=== PATIENT | male | born 1955 | race Caucasian/White ===

== ENCOUNTER 2017-02-28 06:02 | Inpatient (IN) | payer OTHER ==
[~2017-02-28] VITALS: Ht 185.4 cm; Wt 85.9 kg
[~2017-02-28 06:02] MED LIST: ALBU0.63 NEB; ASPI-496 PO; CLOP75TA52 PO; FLUT9.9S NAS; FOLI-17 PO; FURO-92 PO; FURO-93 PO; FURO40TA6 PO; GABA300C10 PO; HYDR-3237 PO; LACT20SO13 PO; LORA-445 PO; LORA-446 PO; METO-99 PO; METO25TA35 PO; METR500T PO; NICO-486 TD; NICO-487 TD; OXYC5CAP2 PO; OXYC5TAB3 PO; OXYGEN INH; PANT40TA3 PO; PANT40TA5 PO; POTA20TA6 PO; POTA20TA91 PO; PRED5TAB PO; SPIR50TA2 PO; TAMS0.4C2 PO; THIA100T6 PO; metoprolol PO
[2017-02-28] MEDS ORDERED: SODIUM CHLORIDE FLUSH 10ML SYR IVF ONE (07:00)
[2017-02-28] MEDS ORDERED: ONDANSETRON 2MG/ML, 2ML IVPush ONE (07:00)
[2017-02-28 07:23] LABS: HEMATOCRIT 29.1 % (39.2-51.8); HEMOGLOBIN 9.6 g/dL (13.7-18.0); WHITE BLOOD COUNT 7.3 x10^3/uL (3.4-10)
[2017-02-28] MEDS ORDERED: morphine SULFATE 10 MG/ML, 1ML ONE ×3 (07:24→14:17)
[2017-02-28] MEDS ORDERED: ONDANSETRON 2MG/ML, 2ML ONE (07:24)
[2017-02-28] MEDS: MORPHINE SULFATE 4 MG/ML, 1ML IVPush PRN ×2 (07:32→10:46)
[2017-02-28 07:35] LABS: ASPARTATE AMINO TRANSFERASE 30 U/L (15-37); BLOOD UREA NITROGEN 6 mg/dL (7-18)
[2017-02-28 07:41] LABS: IS PT STATUS REG ER OR PRE ER? YES
[2017-02-28] MEDS ORDERED: CLINDAMYCIN PMX 600MG/50ML 50 ML IV ONE (10:30)
[2017-02-28 12:00] VITALS: BP 200/104
[2017-02-28] MEDS ORDERED: LABETALOL 5MG/ML, 20ML IVPush PRN (12:00)
[2017-02-28] MEDS ORDERED: ONDANSETRON 2MG/ML, 2ML IVPush PRN (12:00)
[2017-02-28] MEDS ORDERED: POLYETHYLENE GLYCOL 17 GM PACKET PO PRN (12:00)
[2017-02-28] MEDS ORDERED: ALBUTEROL SULFATE 2.5 MG/3 ML NEB PRN (12:30)
[2017-02-28] MEDS ORDERED: ALBUMIN HUMAN 25% 100 ML IV ONE (12:30)
[2017-02-28] MEDS: TAMSULOSIN 0.4 MG CAP.ER.24H PO SCH (12:48)
[2017-02-28] MEDS: METOPROLOL TARTRATE 100 MG TABLET PO SCH (12:48)
[2017-02-28] MEDS: ENOXAPARIN 40 MG/0.4 ML SQ SCH (12:49)
[2017-02-28] MEDS: GABAPENTIN 300 MG CAPSULE PO SCH (12:49)
[2017-02-28 13:30] VITALS: BP 160/99
[2017-02-28] MEDS ORDERED: FOLI-17 PO (13:51)
[2017-02-28] MEDS ORDERED: PANT40TA3 PO (13:56)
[2017-02-28] MEDS ORDERED: THIA100T10 PO (13:56)
[2017-02-28] MEDS ORDERED: FLU VACC QS2017-18 (36MOS+) UP/PF 0.5 ML IM-VACC ONE (14:00)
[2017-02-28] MEDS: morphine SULFATE 10 MG/ML, 1ML IVPush PRN (14:19)
[2017-02-28] MEDS: AMPICILLIN/SULBACTAM 3 GM in SODIUM CHLORIDE 0.9% 100 ML IV SCH ×2 (14:55→21:19)
[2017-02-28] MEDS: FUROSEMIDE 20 MG/2 ML IV SCH (16:55)
[2017-02-28] MEDS ORDERED: ALBUTEROL/IPRATROPIUM 2.5MG/0.5MG, 3 ML IPPB PRN (17:00)
[2017-02-28 19:34] VITALS: BP 117/74
[2017-02-28] MEDS ORDERED: DOXYCYCLINE 100MG TABLET PO ONE (21:00)
[2017-02-28] MEDS ORDERED: ALBUTEROL/IPRATROPIUM 2.5MG/0.5MG, 3 ML IPPB SCH (21:00)
[2017-02-28] MEDS: OXYcodone IR 5MG TABLET PO SCH (21:18)
[2017-03-01 01:48] VITALS: BP 160/82
[2017-03-01] MEDS: AMPICILLIN/SULBACTAM 3 GM in SODIUM CHLORIDE 0.9% 100 ML IV SCH ×4 (02:31→21:32)
[2017-03-01] MEDS: morphine SULFATE 10 MG/ML, 1ML IVPush PRN ×5 (02:58→20:34)
[2017-03-01 04:57] LABS: HEMATOCRIT 24.4 % (39.2-51.8); HEMOGLOBIN 7.8 g/dL (13.7-18.0); WHITE BLOOD COUNT 5.5 x10^3/uL (3.4-10)
[2017-03-01 05:06] LABS: ASPARTATE AMINO TRANSFERASE 28 U/L (15-37); BLOOD UREA NITROGEN 9 mg/dL (7-18)
[2017-03-01] MEDS ORDERED: ALBUTEROL/IPRATROPIUM 2.5MG/0.5MG, 3 ML NPPB PRN (07:00)
[2017-03-01 07:13] VITALS: BP 161/98
[2017-03-01] MEDS: ALBUTEROL/IPRATROPIUM 2.5MG/0.5MG, 3 ML NPPB SCH ×3 (07:44→20:20)
[2017-03-01] MEDS: OXYcodone IR 5MG TABLET PO SCH ×3 (08:17→21:32)
[2017-03-01] MEDS: FUROSEMIDE 20 MG/2 ML IV SCH ×2 (08:17→16:18)
[2017-03-01] MEDS: TAMSULOSIN 0.4 MG CAP.ER.24H PO SCH (08:17)
[2017-03-01] MEDS: GABAPENTIN 300 MG CAPSULE PO SCH (08:17)
[2017-03-01] MEDS: SENNA/DOCUSATE TABLET PO SCH (08:27)
[2017-03-01] MEDS: METOPROLOL TARTRATE 100 MG TABLET PO SCH (08:29)
[2017-03-01 12:55] VITALS: BP 102/60
[2017-03-01] MEDS: ENOXAPARIN 40 MG/0.4 ML SQ SCH (13:16)
[2017-03-01 14:07] VITALS: BP 144/86
[2017-03-01 19:38] VITALS: BP 158/83
[2017-03-01 20:40] LABS: ASPARTATE AMINO TRANSFERASE 34 U/L (15-37); BLOOD UREA NITROGEN 9 mg/dL (7-18)
[2017-03-01 20:47] LABS: HEMATOCRIT 28.5 % (39.2-51.8); HEMOGLOBIN 9.1 g/dL (13.7-18.0); WHITE BLOOD COUNT 5.8 x10^3/uL (3.4-10)
[2017-03-01] MEDS: ALBUMIN HUMAN 25% 100 ML IV SCH (20:48)
[2017-03-02 01:15] VITALS: BP 175/88
[2017-03-02] MEDS: AMPICILLIN/SULBACTAM 3 GM in SODIUM CHLORIDE 0.9% 100 ML IV SCH (05:24)
[2017-03-02] MEDS: morphine SULFATE 10 MG/ML, 1ML IVPush PRN ×2 (05:32→08:31)
[2017-03-02] MEDS: ALBUMIN HUMAN 25% 100 ML IV SCH (06:00)
[2017-03-02 06:56] VITALS: BP 176/93
[2017-03-02] MEDS ORDERED: ALBUMIN HUMAN 25% 100 ML IV SCH (07:00)
[2017-03-02] MEDS ORDERED: MAGNESIUM SULFATE PMX 4GM/100M 100 ML IV ONE (08:30)
[2017-03-02] MEDS: FUROSEMIDE 20 MG/2 ML IV SCH (08:31)
[2017-03-02] MEDS: SENNA/DOCUSATE TABLET PO SCH (09:00)
[2017-03-02] MEDS: ALBUTEROL/IPRATROPIUM 2.5MG/0.5MG, 3 ML NPPB SCH (09:21)
[2017-03-02] MEDS: TAMSULOSIN 0.4 MG CAP.ER.24H PO SCH (10:15)
[2017-03-02] MEDS: METOPROLOL TARTRATE 100 MG TABLET PO SCH (10:16)
[2017-03-02] MEDS: GABAPENTIN 300 MG CAPSULE PO SCH (10:16)
[2017-03-02] MEDS: OXYcodone IR 5MG TABLET PO SCH (10:17)
[2017-03-02] MEDS ORDERED: ATORVASTATIN 20 MG TABLET PO SCH (21:00)
[2017-03-03] MEDS ORDERED: ASPIRIN 81 MG TABLET EC PO SCH (06:00)
== END 2017-03-02 12:47 | disposition left against medical advice (07) | DRG 602 ==
LOC: ED 06:44 → EDIP 10:45 → 4NOR 12:19 → 3NE 03-01 13:54
PROVIDERS: ADMIT Internal Medicine; ATTEND Internal Medicine
DX: L03.115 Cellulitis of right lower limb (principal); E43 Unspecified severe protein-calorie malnutrition; I11.0 Hypertensive heart disease with heart failure; I50.30 Unspecified diastolic (congestive) heart failure; J15.9 Unspecified bacterial pneumonia; Z53.21 Procedure and treatment not carried out due to patient leaving prior to being seen by health care provider; I73.9 Peripheral vascular disease, unspecified; D64.9 Anemia, unspecified; F10.21 Alcohol dependence, in remission; K70.9 Alcoholic liver disease, unspecified; K74.60 Unspecified cirrhosis of liver; L03.116 Cellulitis of left lower limb; N40.0 Benign prostatic hyperplasia without lower urinary tract symptoms; R13.10 Dysphagia, unspecified; Z68.25 Body mass index [BMI] 25.0-25.9, adult; Z80.0 Family history of malignant neoplasm of digestive organs; Z80.1 Family history of malignant neoplasm of trachea, bronchus and lung; Z82.49 Family history of ischemic heart disease and other diseases of the circulatory system; Z85.819 Personal history of malignant neoplasm of unspecified site of lip, oral cavity, and pharynx; Z87.891 Personal history of nicotine dependence; Z99.81 Dependence on supplemental oxygen
CPT/HCPCS: 36415; 71010; 80053; 80061; 81003; 82306; 83605; 83735; 83880; 84145; 84484; 85025; 87040; 90686; 93005; 93922; 93925; 93970; 94640; 96374; 96375; J0295; J1650; J2405; J7620; P9047; J1940; J2270; J3475

== ENCOUNTER 2017-06-26 21:12 | Inpatient (IN) | payer OTHER ==
[~2017-06-26] VITALS: Ht 185.4 cm; Wt 78.6 kg
[~2017-06-26 21:12] MED LIST changes: +THIA100T10 PO
[2017-06-26] MEDS ORDERED: ALBUTEROL/IPRATROPIUM 2.5MG/0.5MG, 3 ML NPPB ONE (21:30)
[2017-06-26] MEDS ORDERED: PLEASE ENTER HEIGHT AND WEIGHT MC SCH (21:30)
[2017-06-26] MEDS ORDERED: ALBUTEROL SULFATE 2.5 MG/3 ML NPPB ONE ×2 (21:30→22:00)
[2017-06-26] MEDS ORDERED: methylPREDNISolone SOD SUCC 125 MG/2 ML IVPush SCH (21:30)
[2017-06-26] MEDS ORDERED: ALBUTEROL/IPRATROPIUM 2.5MG/0.5MG, 3 ML ONE (21:33)
[2017-06-26 21:48] LABS: INTERNATIONAL NORMALIZED RATIO 1.12 (0.93-1.1); PROTHROMBIN TIME 11.6 Seconds (9.6-11.5)
[2017-06-26 21:51] LABS: ANION GAP 5 mmol/L (5-15); CALCIUM 8.4 mg/dL (8.5-10.1); CHLORIDE 98 mmol/L (98-107); CREATININE 0.86 mg/dL (0.7-1.3)
[2017-06-26] MEDS ORDERED: ALBUTEROL SULFATE 2.5 MG/3 ML NEB PRN (23:30)
[2017-06-27] MEDS ORDERED: BISACODYL 10 MG SUPP PR PRN
[2017-06-27] MEDS ORDERED: hydrALAzine 20 MG/ML, 1ML IVPush PRN
[2017-06-27] MEDS ORDERED: FLUTICASONE/VILANTEROL 200-25MCG/INH INH SCH
[2017-06-27] MEDS ORDERED: morphine SULFATE 10 MG/ML, 1ML IVPush PRN
[2017-06-27] MEDS ORDERED: POLYETHYLENE GLYCOL 17 GM PACKET PO PRN
[2017-06-27] MEDS ORDERED: NICOTINE 7 MG/24 HR PATCH.TD24 TD SCH
[2017-06-27] MEDS ORDERED: FAMOTIDINE 20 MG/2 ML IVPush SCH
[2017-06-27] MEDS ORDERED: ONDANSETRON 2MG/ML, 2ML IVPush PRN
[2017-06-27] MEDS ORDERED: ENALAPRILAT 1.25 MG/ML, 2ML IVPush PRN
[2017-06-27] MEDS ORDERED: FUROSEMIDE 20 MG/2 ML IV ONE
[2017-06-27] MEDS ORDERED: LABETALOL 5MG/ML, 20ML IVPush PRN
[2017-06-27] MEDS ORDERED: ACETAMINOPHEN 325 MG TABLET PO PRN
[2017-06-27 00:09] LABS: FREE T4 (FREE THYROXINE) 0.92 ng/dL (0.76-1.46); THYROID STIMULATING HORMONE 2.71 mIU/L (0.358-3.740)
[2017-06-27 00:13] LABS: HEMOGLOBIN A1C 5.4 % (4.2-6.3)
[2017-06-27] MEDS ORDERED: ALBUTEROL/IPRATROPIUM 2.5MG/0.5MG, 3 ML ONE (02:13)
[2017-06-27] MEDS: OXYcodone IR 5MG TABLET PO PRN ×3 (02:27→10:14)
[2017-06-27] MEDS ORDERED: ALBUTEROL/IPRATROPIUM 2.5MG/0.5MG, 3 ML NPPB PRN (03:00)
[2017-06-27 03:03] VITALS: BP 137/82
[2017-06-27 03:43] LABS: MICROSCOPIC AUTO
[2017-06-27 03:44] LABS: CULTURE INDICATED? YES
[2017-06-27 04:30] VITALS: BP 129/81
[2017-06-27 05:13] LABS: BASOPHILS # (AUTO) 0.03 x10^3/uL (0-0.1); BASOPHILS % (AUTO) 0 % (0-1); EOSINOPHILS # (AUTO) 0.22 x10^3/uL (0-0.4); EOSINOPHILS % (AUTO) 3 % (1-7); LYMPHOCYTES # (AUTO) 1.58 x10^3/uL (1-3.4); LYMPHOCYTES % (AUTO) 22 % (22-44); MD NO; MEAN CORPUSCULAR HEMOGLOBIN 31.8 pg (27.5-34.5); MEAN CORPUSCULAR HGB CONC 33.2 g/dL (33.2-36.2); MEAN CORPUSCULAR VOLUME 95.9 fL (81-97); MEAN PLATELET VOLUME 7.6 fL (7.4-10.4); MONOCYTES # (AUTO) 0.85 x10^3/uL (0.2-0.8); MONOCYTES % (AUTO) 12 % (2-9); NEUTROPHILS # (AUTO) 4.62 x10^3/uL (1.8-6.8); NEUTROPHILS % (AUTO) 63 % (42-75); PLATELET COUNT 192 x10^3/uL (130-400); RED BLOOD COUNT 4.01 x10^6/uL (4.38-5.82); RED CELL DISTRIBUTION WIDTH 15.2 % (9.4-14.8)
[2017-06-27 05:19] LABS: CHLORIDE 96 mmol/L (98-107)
[2017-06-27 05:25] LABS: ALANINE AMINOTRANSFERASE 12 U/L (12-78); ALBUMIN 2.7 g/dL (3.4-5.0); ALKALINE PHOSPHATASE 92 U/L (45-117); ANION GAP 6 mmol/L (5-15); BILIRUBIN,TOTAL 0.9 mg/dL (0.2-1.0); CALCIUM 8.1 mg/dL (8.5-10.1); CHOL/HDL RATIO 1.4; CHOLESTEROL, TOTAL 107 mg/dL (140-239); CREATININE 1.04 mg/dL (0.7-1.3); HDL CHOL % 70 % (26-37); HDL CHOLESTEROL (DIRECT) 75 mg/dL (40-60); LDL CHOLESTEROL,CALCULATED 24 mg/dL (54-169); LDL/HDL RATIO 0.3 (0.5-3.0); TOTAL PROTEIN 6.3 g/dL (6.4-8.2); TRIGLYCERIDES 40 mg/dL (50-200); VLDL CHOLESTEROL 8 mg/dL (0-25)
[2017-06-27] MEDS ORDERED: METOPROLOL TARTRATE 50 MG TABLET PO SCH (06:00)
[2017-06-27] MEDS: ALBUTEROL/IPRATROPIUM 2.5MG/0.5MG, 3 ML NPPB SCH ×2 (06:20→10:10)
[2017-06-27] MEDS ORDERED: MAGNESIUM SULFATE PMX 4GM/100M 100 ML IV ONE (08:00)
[2017-06-27] MEDS ORDERED: THIAMINE 100MG TABLET PO SCH (09:00)
[2017-06-27] MEDS ORDERED: FOLIC ACID 1 MG TABLET PO SCH (09:00)
[2017-06-27] MEDS ORDERED: SENNA/DOCUSATE TABLET PO SCH (09:00)
[2017-06-27] MEDS ORDERED: TAMSULOSIN 0.4 MG CAP.ER.24H PO SCH (09:00)
[2017-06-27] MEDS ORDERED: GABAPENTIN 300 MG CAPSULE PO SCH (09:00)
[2017-06-27] MEDS ORDERED: PANTOPROZOLE 40MG TABLET PO SCH (09:00)
[2017-06-27] MEDS ORDERED: NICOTINE 21 MG/24 HR PATCH.TD24 TD ONE (10:30)
[2017-06-28] MEDS ORDERED: THIAMINE 100MG TABLET PO SCH (09:00)
== END 2017-06-27 13:40 | disposition home or self-care (01) | DRG 85 ==
LOC: ED 22:56 → EDIP 23:00 → CCU 06-27 01:50
PROVIDERS: ADMIT Internal Medicine; ATTEND Internal Medicine
DX: S06.5X0A Traumatic subdural hemorrhage without loss of consciousness, initial encounter (principal); E43 Unspecified severe protein-calorie malnutrition; J96.10 Chronic respiratory failure, unspecified whether with hypoxia or hypercapnia; I13.0 Hypertensive heart and chronic kidney disease with heart failure and stage 1 through stage 4 chronic kidney disease, or unspecified chronic kidney disease; Z99.81 Dependence on supplemental oxygen; I50.32 Chronic diastolic (congestive) heart failure; D64.9 Anemia, unspecified; S01.01XA Laceration without foreign body of scalp, initial encounter; J44.1 Chronic obstructive pulmonary disease with (acute) exacerbation; K70.9 Alcoholic liver disease, unspecified; E78.5 Hyperlipidemia, unspecified; N18.3 Chronic kidney disease, stage 3 (moderate); F10.10 Alcohol abuse, uncomplicated; F17.210 Nicotine dependence, cigarettes, uncomplicated; I73.9 Peripheral vascular disease, unspecified; N40.0 Benign prostatic hyperplasia without lower urinary tract symptoms; Z79.82 Long term (current) use of aspirin; Z80.0 Family history of malignant neoplasm of digestive organs; Z80.1 Family history of malignant neoplasm of trachea, bronchus and lung; Z82.49 Family history of ischemic heart disease and other diseases of the circulatory system; Z85.819 Personal history of malignant neoplasm of unspecified site of lip, oral cavity, and pharynx; Z92.21 Personal history of antineoplastic chemotherapy; Z92.3 Personal history of irradiation; W00.0XXA Fall on same level due to ice and snow, initial encounter; Y93.89 Activity, other specified; Y92.89 Other specified places as the place of occurrence of the external cause; Y99.8 Other external cause status
CPT/HCPCS: 36415; 70450; 71045; 80048; 80053; 80061; 81001; 83036; 83735; 84439; 84443; 85025; 85610; 85730; 87081; 87086; 94640; 99291; J7613; J7620; J1940; J3475; S0028

== ENCOUNTER 2017-07-12 20:27 | Emergency (ER) | payer OTHER ==
[~2017-07-12] VITALS: Ht 185.4 cm; Wt 84.1 kg
[2017-07-12] MEDS ORDERED: ALBUTEROL/IPRATROPIUM 2.5MG/0.5MG, 3 ML NPPB SCH (21:00)
[2017-07-12] MEDS ORDERED: SODIUM CHLORIDE FLUSH 10ML SYR IVF ONE (21:00)
[2017-07-12] MEDS ORDERED: ALBUTEROL/IPRATROPIUM 2.5MG/0.5MG, 3 ML ONE (21:02)
[2017-07-12] MEDS ORDERED: methylPREDNISolone SOD SUCC 125 MG/2 ML IVPush SCH (21:30)
[2017-07-12 21:39] LABS: BASOPHILS # (AUTO) 0.03 x10^3/uL (0-0.1); BASOPHILS % (AUTO) 1 % (0-1); EOSINOPHILS # (AUTO) 0.39 x10^3/uL (0-0.4); EOSINOPHILS % (AUTO) 6 % (1-7); LYMPHOCYTES # (AUTO) 1.48 x10^3/uL (1-3.4); LYMPHOCYTES % (AUTO) 21 % (22-44); MD NO; MEAN CORPUSCULAR HEMOGLOBIN 30.9 pg (27.5-34.5); MEAN CORPUSCULAR HGB CONC 32.5 g/dL (33.2-36.2); MEAN CORPUSCULAR VOLUME 95.1 fL (81-97); MEAN PLATELET VOLUME 7.3 fL (7.4-10.4); MONOCYTES # (AUTO) 0.69 x10^3/uL (0.2-0.8); MONOCYTES % (AUTO) 10 % (2-9); NEUTROPHILS # (AUTO) 4.53 x10^3/uL (1.8-6.8); NEUTROPHILS % (AUTO) 64 % (42-75); PLATELET COUNT 274 x10^3/uL (130-400); RED BLOOD COUNT 3.69 x10^6/uL (4.38-5.82)
[2017-07-12 21:49] LABS: ALANINE AMINOTRANSFERASE 20 U/L (12-78); ALBUMIN 2.8 g/dL (3.4-5.0); ANION GAP 6 mmol/L (5-15); CALCIUM 8.2 mg/dL (8.5-10.1); CHLORIDE 93 mmol/L (98-107); CREATININE 1.11 mg/dL (0.7-1.3)
[2017-07-12 21:54] LABS: ALKALINE PHOSPHATASE 93 U/L (45-117); BILIRUBIN,TOTAL 0.6 mg/dL (0.2-1.0); TOTAL PROTEIN 7.3 g/dL (6.4-8.2); TROPONIN I 0.019 ng/mL (0.000-0.045)
[2017-07-12] MEDS ORDERED: ALBUTEROL SULFATE 2.5 MG/3 ML NPPB ONE (23:00)
[2017-07-12 23:31] VITALS: BP 139/81
== END 2017-07-12 23:40 | disposition home or self-care (01) ==
LOC: ED 22:47
DX: J44.1 Chronic obstructive pulmonary disease with (acute) exacerbation (principal); J96.21 Acute and chronic respiratory failure with hypoxia; R55 Syncope and collapse; I10 Essential (primary) hypertension; E11.9 Type 2 diabetes mellitus without complications; E78.5 Hyperlipidemia, unspecified; Z87.891 Personal history of nicotine dependence
CPT/HCPCS: 36415; 70450; 71045; 80053; 83880; 84484; 85025; 93005; 94640; 99291; J7620

== ENCOUNTER 2017-08-17 06:10 | Emergency (ER) | payer OTHER ==
[~2017-08-17] VITALS: Ht 185.4 cm; Wt 81.0 kg
[2017-08-17 06:48] LABS: BASOPHILS # (AUTO) 0.02 x10^3/uL (0-0.1); BASOPHILS % (AUTO) 0 % (0-1); EOSINOPHILS # (AUTO) 0.18 x10^3/uL (0-0.4); EOSINOPHILS % (AUTO) 2 % (1-7); LYMPHOCYTES # (AUTO) 0.99 x10^3/uL (1-3.4); LYMPHOCYTES % (AUTO) 13 % (22-44); MD NO; MEAN CORPUSCULAR HEMOGLOBIN 30.3 pg (27.5-34.5); MEAN CORPUSCULAR HGB CONC 32.3 g/dL (33.2-36.2); MEAN CORPUSCULAR VOLUME 93.7 fL (81-97); MEAN PLATELET VOLUME 7.6 fL (7.4-10.4); MONOCYTES # (AUTO) 0.65 x10^3/uL (0.2-0.8); MONOCYTES % (AUTO) 9 % (2-9); NEUTROPHILS # (AUTO) 5.63 x10^3/uL (1.8-6.8); NEUTROPHILS % (AUTO) 75 % (42-75); PLATELET COUNT 215 x10^3/uL (130-400); RED BLOOD COUNT 3.47 x10^6/uL (4.38-5.82); RED CELL DISTRIBUTION WIDTH 16.1 % (9.4-14.8)
[2017-08-17 06:52] LABS: ALBUMIN 2.7 g/dL (3.4-5.0); ANION GAP 4 mmol/L (5-15); CALCIUM 8.3 mg/dL (8.5-10.1); CHLORIDE 97 mmol/L (98-107); CREATININE 1.27 mg/dL (0.7-1.3)
[2017-08-17 06:56] LABS: TROPONIN I < 0.015 ng/mL (0.000-0.045)
[2017-08-17 08:03] VITALS: BP 149/63
== END 2017-08-17 08:05 | disposition home or self-care (01) ==
LOC: ED 07:14
DX: R09.02 Hypoxemia (principal); J44.0 Chronic obstructive pulmonary disease with (acute) lower respiratory infection; J18.9 Pneumonia, unspecified organism; J90 Pleural effusion, not elsewhere classified; I10 Essential (primary) hypertension; E11.9 Type 2 diabetes mellitus without complications; E78.5 Hyperlipidemia, unspecified; K74.60 Unspecified cirrhosis of liver; F17.200 Nicotine dependence, unspecified, uncomplicated; Z79.82 Long term (current) use of aspirin; Z85.818 Personal history of malignant neoplasm of other sites of lip, oral cavity, and pharynx
CPT/HCPCS: 36415; 71045; 80048; 82040; 83880; 84484; 85025; 93005; 99285